=== PATIENT | female | born 1970 | race African-American/Black ===

== ENCOUNTER 2016-03-13 18:59 | Emergency (ER) | payer OTHER | END 2016-03-13 22:41 | disposition home or self-care (01) | LOC: ER 18:59 | DX: H66.002 Acute suppurative otitis media without spontaneous rupture of ear drum, left ear (principal); J02.0 Streptococcal pharyngitis; I10 Essential (primary) hypertension | CPT/HCPCS: 36415; 80053; 84703; 85025; 87880 ==